=== PATIENT | female | born 1980 | race Caucasian/White ===

== ENCOUNTER 2019-05-28 16:43 | Emergency (ER) | payer OTHER, SELFPAY ==
--- NOTE | 2019-05-28 16:50 | PC.NURSE ---
In bathroom when called for triage
[2019-05-28 16:56] VITALS: BP 124/73; PULSE 79; RESP 20; TEMP 37.2; O2SAT 100
--- NOTE | 2019-05-28 17:07 | DI.RAD.S_ITS ---
PROCEDURE: XR SHOULDER RT MIN 2V INDICATIONS: pain TECHNIQUE: 3 views of the shoulder were acquired. COMPARISON: None. FINDINGS: Bones: No fractures or dislocations. No suspicious bony lesions. Visualized ribs appear intact. Soft tissues: No suspicious soft tissue calcifications. The visualized lung demonstrates an unremarkable appearance. IMPRESSION: Normal shoulder plain films. Dictated by: William Mendez M.D. on 05/28/2019 at 16:23 Approved by: William Mendez M.D. on 05/28/2019 at 16:23
--- NOTE | 2019-05-28 17:29 | ED_ITS ---
HPI - Trauma <BILLY Stephenson - Last Filed: 05/28/19 19:44> General Chief Complaint: Extremity Injury, Upper Stated Complaint: thinks she dislocated her right shoulder Time Seen by Provider: 05/28/19 17:00 Source: patient Mode of arrival: ambulatory Limitations: no limitations History of Present Illness HPI narrative: The patient is a 38-year-old female none smoker who presents with a chief complaint of acute shoulder pain. She states that she was walking her 80 lb dog, when the dog got spooked and pulled. She felt a pop in her shoulder. She denies any numbness or tingling. She is concerned that her arm is dislocated. She states she can still move it a bit. She has not taken anything for pain. She denies any previous injuries to the shoulder. Related Data Previous Rx's Medication Instructions Recorded cyclobenzaprine 10 mg PO TID PRN #20 tab 05/28/19 ketorolac 10 mg PO TID PRN #30 tab 05/28/19 Allergies Allergy/AdvReac Type Severity Reaction Status Date / Time No Known Drug Allergies Allergy Verified 05/28/19 17:03 Review of Systems <BILLY Stephenson - Last Filed: 05/28/19 19:44> Review of Systems Narrative: GENERAL: Denies chills, fatigue, malaise, fever, sweats. HEENT: Denies sinus pain, ear pain, sore throat, difficulty swallowing, dizziness. RESPIRATORY: Denies dyspnea, cough, wheezing, hemoptysis, sputum. CARDIOVASCULAR: Denies chest pain, palpitations, orthopnea, edema, GASTROINTESTINAL: Denies nausea, vomiting, abdominal pain, diarrhea, constipation, melena. : Denies dysuria, frequency, incontinence, hematuria, urinary retention. MUSCULOSKELETAL: See HPI SKIN: Denies rash, skin lesions, or other NEUROLOGIC: Denies weakness, headache, numbness, change in speech, confusion, seizures, incoordination. PSYCHIATRIC: No concerning psychosocial issues. 12 point review of systems is negative except for those stated above PFSH <BILLY Stephenson - Last Filed: 05/28/19 19:44> Social History Smoking Status: Never smoker Social History Smoking Status: Never smoker Exam <BILLY Stephenson - Last Filed: 05/28/19 19:44> Narrative Exam Narrative: GENERAL: This is a well-nourished, well-developed patient, sitting stiffly, appears uncomfortable HEAD: Atraumatic. Normocephalic. No temporal or scalp tenderness. EYES: Pupils equal round and reactive. Extraocular motions intact. No scleral icterus. No injection or drainage. ENT: Nose without bleeding, purulent drainage or septal hematoma. Throat without erythema, tonsillar hypertrophy or exudate. Uvula midline. Airway patent. NECK: Trachea midline. No JVD or lymphadenopathy. Supple, nontender, no meningeal signs. CARDIOVASCULAR: Regular rate and rhythm without murmurs, gallops, or rubs. RESPIRATORY: Clear to auscultation. Breath sounds equal bilaterally. No wheezes, rales, or rhonchi. No cough. No increased respiratory effort. No accessory muscle use. GASTROINTESTINAL: Abdomen soft, non-tender, nondistended. No hepato- splenomegaly, or palpable masses. No guarding. EXTREMITIES: General pain to palpation right shoulder. Able to flex and extend right shoulder. Negative to can test. Positive radial pulse right hand. Able to touch left shoulder with right hand. Able to pronate and supinate right arm. BACK: Nontender without deformity or crepitance. No flank tenderness. Pain to palpation muscles medial to right scapula. NEURO: AOx3. SKIN: No erythema ecchymosis contusion or abrasion noted right shoulder Initial Vital Signs Initial Vital Signs: Vital Signs Temperature 98.9 F 05/28/19 16:56 Pulse Rate 79 05/28/19 16:56 Respiratory Rate 20 05/28/19 16:56 Blood Pressure 124/73 05/28/19 16:56 Pulse Oximetry 100 05/28/19 16:56 <Michael Cunha DO - Last Filed: 05/29/19 07:12> Initial Vital Signs Initial Vital Signs: Vital Signs Temperature 98.9 F 05/28/19 16:56 Pulse Rate 79 05/28/19 16:56 Respiratory Rate 20 05/28/19 16:56 Blood Pressure 124/73 05/28/19 16:56 Pulse Oximetry 100 05/28/19 16:56 Course <Flores Bauer CARDIOTHORACIC PHYSIOTHERAPIST-BC - Last Filed: 05/28/19 19:44> Orders Ordered: Discontinued Medications Acetaminophen (Tylenol) 975 mg PO NOW ONE Stop: 05/28/19 18:30 Last Admin: 05/28/19 18:34 Dose: 975 mg Documented by: LEBRON Cyclobenzaprine HCl (Flexeril) 10 mg PO NOW ONE Stop: 05/28/19 17:09 Last Admin: 05/28/19 17:39 Dose: 10 mg Documented by: LEBRON Cyclobenzaprine HCl (Flexeril 10 Mg Prepack) 1 bottle MISC SEEINSTR ONE Stop: 05/28/19 19:35 Last Admin: 05/28/19 19:56 Dose: 1 bottle Documented by: JEFF Ketorolac Tromethamine (Toradol) 30 mg IM NOW ONE Stop: 05/28/19 17:09 Last Admin: 05/28/19 17:39 Dose: 30 mg Documented by: LEBRON Ketorolac Tromethamine (Toradol 10mg Prepack) 1 bottle MISC SEEINSTR ONE Stop: 05/28/19 19:35 Last Admin: 05/28/19 19:56 Dose: 1 bottle Documented by: JEFF Lidocaine (Lidoderm) 1 each TOP NOW ONE Stop: 05/28/19 18:22 Last Admin: 05/28/19 18:34 Dose: 1 each Documented by: LEBRON Vital Signs Vital signs: Vital Signs - 8 hr 05/28/19 16:56 05/28/19 19:00 Temperature 98.9 F Pulse Rate 79 98 H Respiratory Rate 20 16 Blood Pressure 124/73 Blood Pressure [Left Arm] 136/91 H Pulse Oximetry 100 98 <Michael Cunha DO - Last Filed: 05/29/19 07:12> Orders Ordered: Discontinued Medications Acetaminophen (Tylenol) 975 mg PO NOW ONE Stop: 05/28/19 18:30 Last Admin: 05/28/19 18:34 Dose: 975 mg Documented by: LEBRON Cyclobenzaprine HCl (Flexeril) 10 mg PO NOW ONE Stop: 05/28/19 17:09 Last Admin: 05/28/19 17:39 Dose: 10 mg Documented by: LEBRON Cyclobenzaprine HCl (Flexeril 10 Mg Prepack) 1 bottle MISC SEEINSTR ONE Stop: 05/28/19 19:35 Last Admin: 05/28/19 19:56 Dose: 1 bottle Documented by: JEFF Ketorolac Tromethamine (Toradol) 30 mg IM NOW ONE Stop: 05/28/19 17:09 Last Admin: 05/28/19 17:39 Dose: 30 mg Documented by: LEBRON Ketorolac Tromethamine (Toradol 10mg Prepack) 1 bottle MISC SEEINSTR ONE Stop: 05/28/19 19:35 Last Admin: 05/28/19 19:56 Dose: 1 bottle Documented by: KIMBERLYARRINGTO Lidocaine (Lidoderm) 1 each TOP NOW ONE Stop: 05/28/19 18:22 Last Admin: 05/28/19 18:34 Dose: 1 each Documented by: LEBRON Vital Signs Vital signs: Vital Signs - 8 hr 05/28/19 16:56 05/28/19 19:00 Temperature 98.9 F Pulse Rate 79 98 H Respiratory Rate 20 16 Blood Pressure 124/73 Blood Pressure [Left Arm] 136/91 H Pulse Oximetry 100 98 MDM - Trauma <BILLY Stephenson - Last Filed: 05/28/19 19:44> Imaging Data Shoulder x-ray: Radiologist's impression: [place] [address] XRay Report Signed Patient: Elli Alexandre KMR#: [id number] : 1980Acct:[id number] Age/Sex: 38 / FDate of Service: 05/28/19 Loc: ED Accession Number: [id number] Procedure: XR shoulder RT min 2V Ordering Provider: Flores Bauer PROCEDURE: XR SHOULDER RT MIN 2V INDICATIONS: pain TECHNIQUE: 3 views of the shoulder were acquired. COMPARISON: None. FINDINGS: Bones: No fractures or dislocations. No suspicious bony lesions. Visualized ribs appear intact. Soft tissues: No suspicious soft tissue calcifications. The visualized lung demonstrates an unremarkable appearance. IMPRESSION: Normal shoulder plain films. Dictated by: William Mendez M.D. on 05/28/2019 at 16:23 Approved by: William Mendez M.D. on 05/28/2019 at 16:23 MDM Narrative Medical decision making narrative: The patient is a 38-year-old female who presents with a chief complaint of shoulder pain after her dog spit and pulled on his leash, causing pain to her shoulder. She is concerned that has dissipated, but she is neurovascularly intact has no was full range of motion and has a negative x-ray. She declines any narcotics at this point time, was given Toradol Tylenol lidocaine patch and cyclobenzaprine. This helped her pain a great deal. I did give her take home pack Flexeril as well as Toradol as well as prescriptions. Encouraged follow-up with PCP, discussed the fact that she does not have a fracture does not rule out soft tissue injury. Encourage coming back to the ER for any acute concerns. Patient has no questions or concerns upon discharge was discharged home with mother. Discharge Plan Departure Patient Disposition: Home Clinical Impression: Muscle spasm Acute shoulder pain Qualifiers: Laterality: right Qualified Code(s): M25.511 - Pain in right shoulder Discharge Date/Time: 05/28/19 20:07 Instructions: DI for Shoulder Pain, DI for Muscle Spasm Activity Restrictions/Additional Instructions: Your x-ray came back with no fractures. Please follow up with primary care provider as this does not rule out soft tissue injury. I have given her prescription of muscle relaxer as well as ketorolac. Do not combine the ketorolac with NSAIDs such as ibuprofen Aleve etc. I also suggest lidocaine patches available [id number] as well as Tylenol. Please use ice and or heat. Please come back to the emergency department for any acute concerns. Prescriptions: New cyclobenzaprine 10 mg tablet 10 mg PO TID PRN (Reason: muscle spasm) Qty: 20 RF: 0 ketorolac 10 mg tablet 10 mg PO TID PRN (Reason: pain) Qty: 30 RF: 0 Referrals: Jael Brewer PA-C [Primary Care Provider] - Stand Alone Forms: Work Release Note <Michael Cunha DO - Last Filed: 05/29/19 07:12> Sign Out Provider Sign Out Attestation: I was available for consultation during this patient's emergency department encounter
[2019-05-28] MEDS: CYCLOBENZAPRINE 10 MG TABLET PO (17:39)
[2019-05-28] MEDS: KETOROLAC 60 MG/2 ML VIAL 30 MG IM (17:39)
[2019-05-28] MEDS: LIDOCAINE PATCH 1 EACH ADH..PATCH TOP (18:34)
[2019-05-28] MEDS: ACETAMINOPHEN 325 MG TABLET 975 MG PO (18:34)
[2019-05-28 19:00] VITALS: BP 136/91; PULSE 98; RESP 16; O2SAT 98
[2019-05-28] MEDS: KETOROLAC 10MG PREPACK 1 BOTTLE MISC (19:56)
[2019-05-28] MEDS: CYCLOBENZAPRINE 10 MG PREPACK 1 BOTTLE MISC (19:56)
== END 2019-05-28 20:07 | disposition home or self-care (01) ==
PROVIDERS: Emergency Provider Nurse Practitioner Family; PCP Physician Assistant Medical
DX: M25.511 Pain in right shoulder (principal); Y93.K1 Activity, walking an animal
CPT/HCPCS: 73030; 96372; 99283; J1885